=== PATIENT | female | born 1960 | race Caucasian/White ===

== ENCOUNTER → 2025-07-29 11:27 | Outpatient (REF) | payer OTHER, SELFPAY | LOC: MRI 11:27 | PROVIDERS: ATTENDING PHYSICIAN Physician Assistant Surgical; FAMILY PHYSICIAN Physician Assistant Medical | DX: M54.16 Radiculopathy, lumbar region (principal); M54.59 Other low back pain; M47.816 Spondylosis without myelopathy or radiculopathy, lumbar region | CPT/HCPCS: 72148 ==

== ENCOUNTER → 2025-08-18 08:06 | Outpatient (REF) | payer OTHER, SELFPAY | LOC: PAVMRI 08:06 | PROVIDERS: ATTENDING PHYSICIAN Physician Assistant Surgical; FAMILY PHYSICIAN Physician Assistant Medical | DX: M48.062 Spinal stenosis, lumbar region with neurogenic claudication (principal) | CPT/HCPCS: 72146 ==

== ENCOUNTER 2025-09-01 21:20 | Inpatient (IN) | payer OTHER, SELFPAY ==
[2025-09-01 17:46] VITALS: BP 133/89
[2025-09-01 18:18] LABS: Hematocrit 35.0 % (37.0-47.0); Hemoglobin 11.3 g/dL (12.0-16.0); Mean Corp Hgb Conc. 32.3 g/dL (33.0-37.0); Mean Corpuscular Volume 85.6 fL (81.0-99.0); Nucleated Red Blood Cells % 0 %; Platelet Count 172 10^3/uL (130-400); Red Cell Dist. Width 13.6 % (11.5-14.5)
[2025-09-01 18:30] LABS: ALT (SGPT) 39 U/L (0-35); AST (SGOT) 43 U/L (14-36); Albumin 3.8 g/dl (3.5-5.0); Alkaline Phosphatase 139 U/L (38-126); Blood Urea Nitrogen 19 mg/dl (7-17); Calcium 8.8 mg/dl (8.4-10.2); Carbon Dioxide 26 mmol/L (22-30); Chloride 95 mmol/L (98-107); Glucose 469 mg/dl (70-99); Potassium 4.7 mmol/L (3.5-5.1); Sodium 127 mmol/L (135-145); Total Protein 6.9 g/dl (6.3-8.2); eGFR 46.49
[2025-09-01 19:39] VITALS: BP 128/63
[2025-09-01 19:48] LABS: Glucose - Point of Care 411 mg/dl (70-99)
--- NOTE | 2025-09-01 20:03 | ED.GENMED ---
History of Present Illness
<Leighton Trujillo PA-C - Last Filed: 09/01/25 23:55>
General
Chief Complaint: Swelling
Source: patient
Time Seen by Provider: 09/01/25 19:33
History of Present Illness
History of Present Illness:
64-year-old female with past medical history of restless leg, type 2 diabetes presenting to the emergency department for evaluation of a multitude of symptoms that are been ongoing the last 2 weeks including worsening of her restless leg syndrome,
excessive fatigue, feeling as if she is having a hard time speaking, forgetfulness, polyuria and polydipsia, bilateral lower extremity edema. Patient states that due to her worsening restless legs she has been working with her specialist to the
[facility] but still having a hard time getting the symptoms under control. She denies any fevers or recent illnesses, recent steroid tapers, abdominal pain, nausea, vomiting or any other concerns. Denies any history of similar.
Past History
<Leighton Trujillo PA-C - Last Filed: 09/01/25 23:55>
Past History
ED Past Medical History: NIDDM and Other (Restless leg syndrome)
ED Past Surgical History: and Orthopedic
Social History
Tobacco: Non-smoker
Alcohol: Occasional
Drug: None
Personal:
Living: with family
Review of Systems
<Leighton Trujillo PA-C - Last Filed: 09/01/25 23:55>
Review of Systems
All Other Systems: ROS reviewed and negative except as documented in HPI and ROS
Phy Exam
<Leighton Trujillo PA-C - Last Filed: 09/01/25 23:55>
Physical Exam
Physical Exam:
GENERAL: Alert , in no apparent distress
HEAD: Normocephalic atraumatic
EYE: Clear conjunctiva
NECK: Supple
ENT: mmm.
CARDIAC: Regular rate and rhythm .
LUNGS: Clear breath sounds bilaterally, no acute respiratory distress, no wheezes/rales/rhonchi
ABDOMEN: Soft, without focal tenderness, no r/g, no cvat
NEUROLOGICAL: Alert and oriented, no focal neuro deficits, ambulatory with a steady gait
SKIN: Warm and dry, skin intact.
MUSCULOSKELETAL: well perfused. Nonpitting bilateral ankle edema
PSYCH: Normal and appropriate interaction.
Scores
<Leighton Trujillo PA-C - Last Filed: 09/01/25 23:55>
Heart Failure Risk
Heart Failure Risk Score: Not Applicable
Heart Score for Chest Pain Patients
STEMI patient?: Not applicable
Withdrawal Assessment of Alcohol
Withdrawal Assessment Completed?: Not applicable
Course
<Leighton Trujillo PA-C - Last Filed: 09/01/25 23:55>
Orders/Labs/Results
Orders:
Orders
09/01/25 Breakfast
2200 calorie (18 carb) Diabetic
At Your Request: Full Participation
Does patient need a safe tray?: No
09/01/25 17:59
Complete Blood Count/With Diff Urgent
Comprehensive Metabolic Panel Urgent
09/01/25 19:42
0.9% Sodium Chloride 1000 ml [Nss] 1,000 ml IV BOLUS
09/01/25 19:58
Insulin Aspart [NOVOLOG vial] See Protocol SC NOW STA
09/01/25 20:43
Add On- LAB Stat
Tests Added?: urine protein and creatine
09/01/25 20:52
Insulin Glargine Lantus [Lantus] 5 units Subcutaneous Insulin Syringe [Syringe-Insulin] 0 unit SC ONCE
09/01/25 20:56
Admit/Transfer Patient As Directed
Co-Sign Provider:
Level of Care: Inpatient admission
Assign to:: Medical/Surgical
Physician / Group: [email or web address]
Diagnosis: hyperglycemia
Reason for Hospitalization: hyperglycemia
Expected length of stay greater than two midnights?: Yes
ELOS- Estimated Length of Stay in days: 3
I certify the patient meets the requirements for IP care: Yes
PRN Pain Medication Management As Directed
May give lesser potent ordered pain med per pt: Yes
preference::
Protocol:: Medication orders for pain may be administered in a
manner that supports deferring to patient preference
when the pt is:
- Requesting an ordered lesser potent pain medication.
Least to most potent pain medications are defined
as: acetaminophen < NSAID < tramadol < opioids
(morphine, oxycodone, hydromorphone).
- Requesting a lesser dose of the same medication IF
ORDERED.
- Requesting a less intrusive route of administration
if both routes are prescribed by the provider (PO <
IV).
09/01/25 20:57
Code Status As Directed
Resuscitation Status: Full Code
09/01/25 21:00
B-Hydroxybutyrate Urgent
NT-proBNP Urgent
Venous Blood Gas Urgent
%Oxygen/Room Air: RA
09/01/25 21:01
Oxycodone [Roxicodone] 10 mg PO NOW STA
Pramipexole [Mirapex] 2.25 mg PO NOW STA
09/01/25 21:17
Pramipexole [Mirapex, Generic, Mirapex] 0.75 mg PO NOW STA
09/01/25 22:04
Urinalysis Reflex To Culture Urgent
Date Specimen was Collected: 09/01/25
Time Specimen was Collected: 19:49
Urine Creatinine Urgent
Date Specimen was Collected: 09/01/25
Time Specimen was Collected: 19:49
Comment: ADD ON
Urine Microscopic Reflex Cult Urgent
Urine Protein Urgent
Date Specimen was Collected: 09/01/25
Time Specimen was Collected: 19:49
Comment: ADD ON
Urine Culture Urgent
DIANE Source: U
Specimen Description:
Date Specimen was Collected: 09/01/25
Time Specimen was Collected: 19:49
09/01/25 22:44
Bisacodyl [Dulcolax] 10 mg RECTAL [id number] PRN
Dextrose 50%-Water [Dextrose 50% Syringe] 12.5 grams IV [id number] PRN
Docusate W/Senna [Senokot-S] 1 tablet PO BIDPRN PRN
Doxepin [Sinequan] 10 mg PO HS
Glucagon [GlucaGen] 1 mg IM PRN PRN
Polyethylene Glycol Powder [Miralax] 17 grams PO DAILYPRN PRN
09/01/25 22:44
Diabetes Management by Nurse Practitioner Routine
Consulting Provider: Amy Storm
Was provider already notified?: No
Reason for Consult: Insulin Recommendation
Date consulting provider notified: 09/01/25
Time consulting provider notified: 22:45
Notified:: Office
Activity As Directed
Activity Level: As Tolerated
Bedside Glucose Monitoring As Directed
Frequency: AC&HS
Additional Instructions:: Change to q6h if pt on TPN, tube feeding or not eating
Vital Signs As Directed
Frequency: Per unit guidelines
DX Deep Vein Thrombosis Video Routine
09/02/25 06:00
Complete Blood Count/No Diff IN AM
Comprehensive Metabolic Panel IN AM
Glycohemoglobin (HgbA1c) IN AM
09/02/25 07:30
Insulin Aspart Corrective Mod [Novolog Flexpen-Moderate Resistance] See Protocol SC AC
09/02/25 08:00
Heparin 5,000 units SC Q12
Sertraline HCl [Zoloft] 50 mg PO DAILY
09/02/25 22:00
Oxycodone [Roxicodone] 10 mg PO HS
pramipexole 2.25 mg PO HS
09/03/25 06:00
Complete Blood Count/No Diff IN AM
Comprehensive Metabolic Panel IN AM
09/04/25 06:00
Complete Blood Count/No Diff IN AM
Comprehensive Metabolic Panel IN AM
09/05/25 06:00
Complete Blood Count/No Diff IN AM
Comprehensive Metabolic Panel IN AM
Abnormal Lab Results
09/01/25 09/01/25 09/01/25
17:59 19:46 21:00
RBC 4.09 L 10^6/uL
(4.20-5.40)
Hgb 11.3 L g/dL
(12.0-16.0)
Hct 35.0 L %
(37.0-47.0)
MCHC 32.3 L g/dL
(33.0-37.0)
MPV 10.6 H fL
(7.4-10.4)
Absolute Monos (auto) 0.8 H 10^3/uL
(0.1-0.6)
Neutrophils % 35.4 L %
(42.2-75.2)
Monocytes % 15.1 H %
(1.7-9.3)
VBG pCO2 57 H mmHg
(35-48)
VBG HCO3 30.1 H mmol/L
(22-27)
Sodium 127 L mmol/L
(135-145)
Chloride 95 L mmol/L
(98-107)
BUN 19 H mg/dl
(7-17)
Creatinine 1.3 H mg/dL
(0.6-1.0)
Glucose 469 H* mg/dl
(70-99)
AST 43 H U/L
(14-36)
ALT 39 H U/L
(0-35)
Alkaline Phosphatase 139 H U/L
(38-126)
POC Glucose 411 H mg/dl
(70-99)
09/01/25 17:59
09/01/25 17:59
Vital Signs
Initial and Last Documented VS:
Initial Vital Signs
Pulse Resp Pulse Ox
85 18 95
09/01/25 17:45 09/01/25 17:45 09/01/25 17:45
Last Documented Vital Signs
Temp Pulse Resp BP Pulse Ox
97.8 F 80 16 89/57 94
09/01/25 22:45 09/01/25 22:45 09/01/25 22:45 09/01/25 22:45 09/01/25 22:45
<Gunnar Lincoln, DO - Last Filed: 09/01/25 20:17>
Orders/Labs/Results
Orders:
Orders
09/01/25 Breakfast
2200 calorie (18 carb) Diabetic
At Your Request: Full Participation
Does patient need a safe tray?: No
09/01/25 17:59
Complete Blood Count/With Diff Urgent
Comprehensive Metabolic Panel Urgent
09/01/25 19:42
0.9% Sodium Chloride 1000 ml [Nss] 1,000 ml IV BOLUS
09/01/25 19:58
Insulin Aspart [NOVOLOG vial] See Protocol SC NOW STA
09/01/25 20:43
Add On- LAB Stat
Tests Added?: urine protein and creatine
09/01/25 20:52
Insulin Glargine Lantus [Lantus] 5 units Subcutaneous Insulin Syringe [Syringe-Insulin] 0 unit SC ONCE
09/01/25 20:56
Admit/Transfer Patient As Directed
Co-Sign Provider:
Level of Care: Inpatient admission
Assign to:: Medical/Surgical
Physician / Group: [email or web address]
Diagnosis: hyperglycemia
Reason for Hospitalization: hyperglycemia
Expected length of stay greater than two midnights?: Yes
ELOS- Estimated Length of Stay in days: 3
I certify the patient meets the requirements for IP care: Yes
PRN Pain Medication Management As Directed
May give lesser potent ordered pain med per pt: Yes
preference::
Protocol:: Medication orders for pain may be administered in a
manner that supports deferring to patient preference
when the pt is:
- Requesting an ordered lesser potent pain medication.
Least to most potent pain medications are defined
as: acetaminophen < NSAID < tramadol < opioids
(morphine, oxycodone, hydromorphone).
- Requesting a lesser dose of the same medication IF
ORDERED.
- Requesting a less intrusive route of administration
if both routes are prescribed by the provider (PO <
IV).
09/01/25 20:57
Code Status As Directed
Resuscitation Status: Full Code
09/01/25 21:00
B-Hydroxybutyrate Urgent
NT-proBNP Urgent
Venous Blood Gas Urgent
%Oxygen/Room Air: RA
09/01/25 21:01
Oxycodone [Roxicodone] 10 mg PO NOW STA
Pramipexole [Mirapex] 2.25 mg PO NOW STA
09/01/25 21:17
Pramipexole [Mirapex, Generic, Mirapex] 0.75 mg PO NOW STA
09/01/25 22:04
Urinalysis Reflex To Culture Urgent
Date Specimen was Collected: 09/01/25
Time Specimen was Collected: 19:49
Urine Creatinine Urgent
Date Specimen was Collected: 09/01/25
Time Specimen was Collected: 19:49
Comment: ADD ON
Urine Microscopic Reflex Cult Urgent
Urine Protein Urgent
Date Specimen was Collected: 09/01/25
Time Specimen was Collected: 19:49
Comment: ADD ON
Urine Culture Urgent
DIANE Source: U
Specimen Description:
Date Specimen was Collected: 09/01/25
Time Specimen was Collected: 19:49
09/01/25 22:44
Bisacodyl [Dulcolax] 10 mg RECTAL [id number] PRN
Dextrose 50%-Water [Dextrose 50% Syringe] 12.5 grams IV [id number] PRN
Docusate W/Senna [Senokot-S] 1 tablet PO BIDPRN PRN
Doxepin [Sinequan] 10 mg PO HS
Glucagon [GlucaGen] 1 mg IM PRN PRN
Polyethylene Glycol Powder [Miralax] 17 grams PO DAILYPRN PRN
09/01/25 22:44
Diabetes Management by Nurse Practitioner Routine
Consulting Provider: Amy Storm
Was provider already notified?: No
Reason for Consult: Insulin Recommendation
Date consulting provider notified: 09/01/25
Time consulting provider notified: 22:45
Notified:: Office
Activity As Directed
Activity Level: As Tolerated
Bedside Glucose Monitoring As Directed
Frequency: AC&HS
Additional Instructions:: Change to q6h if pt on TPN, tube feeding or not eating
Vital Signs As Directed
Frequency: Per unit guidelines
DX Deep Vein Thrombosis Video Routine
09/02/25 06:00
Complete Blood Count/No Diff IN AM
Comprehensive Metabolic Panel IN AM
Glycohemoglobin (HgbA1c) IN AM
09/02/25 07:30
Insulin Aspart Corrective Mod [Novolog Flexpen-Moderate Resistance] See Protocol SC AC
09/02/25 08:00
Heparin 5,000 units SC Q12
Sertraline HCl [Zoloft] 50 mg PO DAILY
09/02/25 22:00
Oxycodone [Roxicodone] 10 mg PO HS
pramipexole 2.25 mg PO HS
09/03/25 06:00
Complete Blood Count/No Diff IN AM
Comprehensive Metabolic Panel IN AM
09/04/25 06:00
Complete Blood Count/No Diff IN AM
Comprehensive Metabolic Panel IN AM
09/05/25 06:00
Complete Blood Count/No Diff IN AM
Comprehensive Metabolic Panel IN AM
Abnormal Lab Results
09/01/25 09/01/25 09/01/25
17:59 19:46 21:00
RBC 4.09 L 10^6/uL
(4.20-5.40)
Hgb 11.3 L g/dL
(12.0-16.0)
Hct 35.0 L %
(37.0-47.0)
MCHC 32.3 L g/dL
(33.0-37.0)
MPV 10.6 H fL
(7.4-10.4)
Absolute Monos (auto) 0.8 H 10^3/uL
(0.1-0.6)
Neutrophils % 35.4 L %
(42.2-75.2)
Monocytes % 15.1 H %
(1.7-9.3)
VBG pCO2 57 H mmHg
(35-48)
VBG HCO3 30.1 H mmol/L
(22-27)
Sodium 127 L mmol/L
(135-145)
Chloride 95 L mmol/L
(98-107)
BUN 19 H mg/dl
(7-17)
Creatinine 1.3 H mg/dL
(0.6-1.0)
Glucose 469 H* mg/dl
(70-99)
AST 43 H U/L
(14-36)
ALT 39 H U/L
(0-35)
Alkaline Phosphatase 139 H U/L
(38-126)
POC Glucose 411 H mg/dl
(70-99)
09/01/25 17:59
09/01/25 17:59
Vital Signs
Initial and Last Documented VS:
Initial Vital Signs
Pulse Resp Pulse Ox
85 18 95
09/01/25 17:45 09/01/25 17:45 09/01/25 17:45
Last Documented Vital Signs
Temp Pulse Resp BP Pulse Ox
97.8 F 80 16 89/57 94
09/01/25 22:45 09/01/25 22:45 09/01/25 22:45 09/01/25 22:45 09/01/25 22:45
<Leighton Trujillo PA-C - Last Filed: 09/01/25 23:55>
MDM/Problems Addressed
Differential Diagnosis Includes:
Medication reaction/side effects
DKA
HHNK
CVA/TIA
ICH
Electrolyte imbalance
Anemia
CHF
MDM/Problems Addressed:
64-year-old female presenting to the ER for evaluation of a multitude of symptoms that are been worsening over the last 2 weeks, patient most concerned about the swelling in her legs as well as forgetfulness. Labs were initiated on arrival which
show a significant hyperglycemia with a glucose of 469. Sodium of 127 but suspect pseudohyponatremia secondary to hyperglycemia. Patient also has a very slight RAMIREZ. I added on a beta hydroxybutyrate, venous blood gas, urinalysis and BNP to
patient's blood work. IV fluids and subcutaneous NovoLog ordered to start correcting patient's hyperglycemia. Plan for admission
Chronic conditions affecting care: DM
Acute Exacerbation and/or Progression of Chronic Illness: DM
<Leighton Trujillo PA-C - Last Filed: 09/01/25 23:55>
*Pulse Oximetry
SaO2: 95
Oxygen Mode of Delivery: Room air
Patient hypoxic: no
*Pipe Installer Interpretation
Rate: normal
Rhythm: sinus
*Critical Care Note
Total Time (30-74mins, 75-104mins- exclusive of procedures): Not Applicable
<Leighton Trujillo PA-C - Last Filed: 09/01/25 23:55>
Comment
Comment:
Patient did tell Dr. Lincoln that she had recently completed a 6-day prednisone taper as part of trying to get her restless leg syndrome under control
Patient Management
Discussion with other providers: Hospitalist
Escalation/DeEscalation of care consider admission/obs:
Hospitalist team is aware and accepts continued evaluation and treatment of hyperglycemia without DKA.
ED Attending Note
<Leighton Trujillo PA-C - Last Filed: 09/01/25 23:55>
-
Portions of this chart may have been created with voice recognition software.� Occasional wrong word or��sound alike� substitutions may have occurred due to the inherent limitations of voice recognition software.
<Gunnar Lincoln DO - Last Filed: 09/01/25 20:17>
ED Attending Note
Patient seen and examined by attending physician: Yes
I performed the substantive portion of visit, reviewed & personally made and approve the management plan that is documented in note by myself or NAWAF.: Yes
ED Attending Note:
I have seen and evaluated the patient with a [id number] encounter. I have spoken to the advance practicer provider and involved in the medical history, the physical exam, medical decision making.
Evaluation and management service: agree unless noted differently below.
Results interpretation: agree unless noted differently below.
Focused HPI: 64-year-old female presenting with generalized weakness and fatigue, leg swelling and shortness of breath and blurry vision.
Physical exam: Sitting in bed comfortably. Very dry mucous membranes. Nonpitting lower extremity edema bilaterally
Medical Decision Making: Upon further questioning, patient believes that she just had back for back pain. Patient found to be hyperglycemic which is likely the source of her symptoms. Will give dose of insulin and start IV fluids and ultimately
admit.
Discharge Plan
Departure
Patient Disposition: Admit
Date of Disposition: 09/01/25
Time of Disposition: 20:22
Presentation/result/management discussed w/ accepting MD/DO: Hospitalist
Discharge Problem:
Acute hyperglycemia, RAMIREZ (acute kidney injury)
Interventions
Interventions:
*General Assessment Last Done: 09/01/25 21:06
*Neglect/Abuse Screening Last Done: 09/01/25 21:06
*ED- Fall Risk Assessment Last Done: 09/01/25 21:06
*ED COVID-19 Vaccine History Last Done: 09/01/25 21:06
*ED Influenza Vaccine History Last Done: 09/01/25 21:06
*Nursing Disposition Last Done: 09/01/25 22:35
ED- Cardiac Assessment Last Done: 09/01/25 21:06
ED- Pulmonary Assessment Last Done: 09/01/25 21:06
ED-Skin Assessment Last Done: 09/01/25 21:06
Discharge Date and Time
Discharge Date/Time: 09/01/25 22:35
--- NOTE | 2025-09-01 20:22 | HPS.HSE ---
Family Physician
-
Family Physician: Iggy Gregorio PA-C
Chief Complaint
-
weakness
History of Present Illness
64-year-old female with past medical history of restless leg, type 2 diabetes,HTN, anxiety, restless leg syndrome presented to us with fatigue, weakness, not able to think and talk correctly, worsening fogginess which progressively getting worse for
past one month. patient stated polydipsia for past few weeks. she is not able to sleep at night due to back pain. she is also complaining of worsening restless leg syndrome which actually improving with increased dose of oxycodone for past two
weeks.patient stated stopping monjaro a month ago as she was gaining weight on Monjaro. patient complained of worsening LE edema. she complained of blurry vision, dizzy. denied fever, chills, cough, congestion, chest pain, sob. denied abdominal
pain,n,v,d,. denied dysuria or hematuria. patient was on Medrol pack two weeks ago for restless syndrome and back pain.
upon arrival she was noted hyperglycemic. Patient received insulin aspart, normal saline in the ER. Admitting for further med
Medical History
Past Medical History
Past Medical History: Reports Other
Additional Past Medical History:
Restless leg syndrome, hypertension, anxiety, type 2 diabetes, hyperlipidemia, GERD, steatohepatitis, type fatty liver, depression
Past Surgical History: Reports Other
Social History
Tobacco: Non-smoker
Alcohol: None
Drug: None
Personal:
Living: With Family
Family History
Family History: Not pertinent
Allergies / Home Medications
Allergies reflects when Allergies were last updated in [employer].
Home Medications with original date entered in [employer]
Allergy/Medication List:
Allergies
Allergy/AdvReac Type Severity Reaction Status Date / Time
No Known Allergies Allergy Unverified 09/01/25 17:46
Home Medications
metformin 500 mg tablet 500 mg PO BID 07/03/16
Review of Systems
-
Constitutional: Reports Weight Gain
EENT: Reports No Symptoms
Respiratory: Reports No Symptoms
Cardiac: Reports No Symptoms
Abdomen/GI: Reports No Symptoms
: Reports No Symptoms
Musculoskeletal: Reports No Symptoms
Skin: Reports No Symptoms
Neurological: Reports Dizzy and Weakness
Endocrine: Reports Polydipsia
Hematologic/Lymphatic: Reports No Symptoms
Psych: Reports No Symptoms
Physical Exam
Vital Signs
Vital Signs
Pulse Resp BP Pulse Ox
85 18 133/89 95
09/01/25 17:45 09/01/25 17:45 09/01/25 17:46 09/01/25 20:04
Physical Exam
General: Well Developed, Well Nourished and No Apparent Distress
HEENT: NormoCephalic, Moist mucous membranes and Atraumatic
Respiratory: Clear
Cardiac: S1/S2 and Regular Rhythm; No Murmur or Rub
GI: Soft, Non Tender, Non Distended and Normal Bowel Sounds; No Organomegaly
Rectal: Deferred by Provider
Musculoskeletal: No Clubbing, No Cyanosis and No Edema
Skin: No Rash
Neuro: AO x 3 and Nonfocal/grossly intact
Psych: Calm
Laboratory Results
-
09/01/25 17:59
09/01/25 17:59
Laboratory Results
Total Bilirubin 0.8 mg/dl (0.2-1.3) 09/01/25 17:59
AST 43 U/L (14-36) H 09/01/25 17:59
ALT 39 U/L (0-35) H 09/01/25 17:59
Alkaline Phosphatase 139 U/L (38-126) H 09/01/25 17:59
Data Reviewed
-
Lab Data: Labs Reviewed by me
Impression/Plan
-
# Severe hyperglycemia/type 2 diabetes
- Blood sugar in 400s
- Sliding scale
- CHO diet
- Diabetic MINE UTILITY OPERATOR consulted
- Lantus 5 units now
- Hold metformin
# Pseudohyponatremia
- Corrected sodium is 136
#Acute kidney injury likely dehydration
- Creatinine 1.3
- Continue to monitor creatinine
- Patient received normal saline in the ER
# Chronic transaminitis
- AST 43, ALT 39
- Denies any abdominal pain
- Continue to trend
# Essential hypertension
- Hold valsartan/HCTZ
# Depression/anxiety
- Doxepin, sertraline continue
# Restless leg syndrome
- Oxycodone, pramipexole continued
# DVT prophylaxis
- Heparin subcu
# CODE STATUS
- Full code
--- NOTE | 2025-09-01 20:24 | W.PN.UPDATE ---
Update Note
Progress Note Update
Patient seen in conjunction with KIKI. I agree with the findings on physical. I concur with assessment and plan unless stated otherwise.
Briefly, this is a 62-year-old with past medical history significant for jyf-zdwdjzo-vbbfsqejg diabetes, restless leg syndrome presenting to the emergency department with multiple complaints has been going on for about 2 weeks. She reports
increasing fatigue, forgetfulness, polyuria, polydipsia, bilateral lower extremity edema. Denies any urinary symptoms such as dysuria urgency, incontinence or flank pain. Denies having nausea vomiting or diarrhea. Denies having any skin rash.
Denies any new medications. Reports compliance with all medicines.
She reported that she stopped taking Mounjaro about 1 month ago. Medicine time she did get a Medrol Dosepak for back pain recently. She reports some increased thirst. She denies increased urine output. She did notice increased lower extremity
swelling and some weight gain over the last 2 to 3 weeks. Patient reports occasionally feeling dizzy.
She used to be on pramipexole which was stopped recently for a trial of Suboxone in the setting of opioid use. Suboxone was discontinued after 3 days however pramipexole has not been continued and he has been using increasing doses of oxycodone
prescribed by PMD rather than by restless leg specialist.
In the emergency department she was found to be afebrile, hemodynamically stable with a blood pressure of 133/90 and a pulse of 85 satting 95% on room air. CBC was unremarkable. Electrolytes notable for a sodium of 127 with normal potassium
chloride and bicarb. Creatinine is 1.3. Glucose was elevated at 419. She had mild transaminitis elevation to 43 and 39 with alk phos of 139.
Assessment and plan
Uncontrolled diabetes with hyperglycemia. No DKA or HHS
- Admit to MedSurg
- IV fluids with NS if bnp negative.
- Start moderate dose sliding scale.
- Will give aspart 8 units now
- Lantus 5 units at bedtime
- check a1c in am
Altered mental status -suspect multifactorial including uncontrolled diabetes, worsening and nighttime insomnia and daytime sleepiness + fatigue
- TSH is within normal limits
- check u/a, b12
- Reduce oxycodone to 10 mg at bedtime for now
- Restart pramipexole
- Can try melatonin at bedtime to reduce sleep
- Follow-up with RLS specialist after sugar control
Edema -1+ ankle edema bilaterally. No orthopnea but reports fatigue and some dyspnea on exertion.
- Check proBNP
- Check protein creatinine for proteinuria although does not appear to be nephrotic normal abdomen level and normal blood pressure
- iV fluids if proBNP negative
- Continue valsartan and hydrochlorothiazide
DVT prophylaxis� heparin sq
CODE STATUS�full code
[2025-09-01 21:03] VITALS: BMI 36.0
[2025-09-01 21:08] LABS: Venous Blood Gas B.E. 2.9 mmol/L (-4 to +4); Venous Blood Gas O2 Sat % 59.0 %
[2025-09-01 21:14] VITALS: BP 106/67
[2025-09-01] MEDS: NOVOLOG vial 3 UNITS SC (21:24)
[2025-09-01 21:25] LABS: Glucose - Point of Care 329 mg/dl (70-99)
[2025-09-01] MEDS: LANTUS 0.05 UNITS SC (21:25)
[2025-09-01] MEDS: ROXICODONE 10 MG PO (21:52)
[2025-09-01] MEDS: MIRAPEX, GENERIC 0.75 MG PO (21:54)
[2025-09-01] MEDS: NSS 1000 IV (21:56)
[2025-09-01 22:00] VITALS: BP 120/96
[2025-09-01 22:15] LABS: Urine Character Clear (Clear)
[2025-09-01 22:45] VITALS: BP 89/57; BMI 35.2
[2025-09-01 22:47] LABS: Urine Squamous Cell >30 /LPF (Few)
[2025-09-01 22:48] LABS: Urine White Cell 50-60 /HPF (0-5)
[2025-09-02] MEDS: SINEQUAN PO (00:03)
[2025-09-02 03:40] VITALS: BP 120/64
[2025-09-02 05:39] LABS: Hematocrit 33.7 % (37.0-47.0); Hemoglobin 10.9 g/dL (12.0-16.0); Mean Corp Hgb Conc. 32.3 g/dL (33.0-37.0); Mean Corpuscular Volume 87.8 fL (81.0-99.0); Platelet Count 163 10^3/uL (130-400); Red Cell Dist. Width 13.9 % (11.5-14.5)
[2025-09-02 06:05] LABS: ALT (SGPT) 34 U/L (0-35); AST (SGOT) 35 U/L (14-36); Albumin 3.2 g/dl (3.5-5.0); Alkaline Phosphatase 123 U/L (38-126); Blood Urea Nitrogen 22 mg/dl (7-17); Calcium 8.8 mg/dl (8.4-10.2); Carbon Dioxide 25 mmol/L (22-30); Chloride 101 mmol/L (98-107); Estimated Creatinine Clearance 39 ml/min; Glucose 225 mg/dl (70-99); Potassium 4.1 mmol/L (3.5-5.1); Sodium 129 mmol/L (135-145); Total Protein 6.6 g/dl (6.3-8.2); eGFR 33.70
[2025-09-02 07:10] VITALS: BP 114/71
[2025-09-02 07:16] LABS: Glucose - Point of Care 207 mg/dl (70-99)
[2025-09-02] MEDS: HEPARIN SC (08:47)
[2025-09-02] MEDS: NOVOLOG FLEXPEN-MODERATE RESISTANCE 3 UNITS SC ×3 (08:49→16:26)
[2025-09-02] MEDS: ZOLOFT 50 MG PO (08:50)
[2025-09-02] MEDS: MIRAPEX, GENERIC 0.5 MG PO ×3 (08:50→20:48)
[2025-09-02] MEDS: NSS 1000 IV ×2 (09:19→19:04)
[2025-09-02 09:40] LABS: Glycohemoglobin (HgbA1c) 10.8 % (4.0-5.9)
[2025-09-02 11:00] VITALS: BP 125/67
--- NOTE | 2025-09-02 11:25 | W.PN.HOSP.TC ---
Today's Communication/Plan
-
see outlined plan below
Assessment / Plan
Assessment / Plan
Assessment:
Severe hyperglycemia without DKA
NIDDM
- likely partially worsened with recent Medrol dose pack but also concerns for dietary compliance
- A1c is 10.8%
- holding Metformin due to RAMIREZ
- will initiate Lantus 10 units, aspart 5 units AC, SSI
- diabetes education and SUPERVISOR TILE AND MOTTLE consult for Thursday
- diabetic diet
Pseudohyponatremia in setting of hyperglycemia
RAMIREZ in setting of acute dehydration
- continue IVF (NSS)
- monitor labs
- BS/SC protocol
Chronic transaminitis
- could be related to fatty liver with hx of DM, and elevated BMI
- AST 43, ALT 39
- Denies any abdominal pain
- Continue to trend
- OP f/u
Essential hypertension
- Hold valsartan/HCTZ for RAMIREZ/Hyponatermia
Depression/anxiety
- Doxepin, sertraline continue
Restless leg syndrome
- pramipexole continued
- followed by Dr. Hoang - [place] RLS specialist
- Dr. Hoang is prescribing oxycodone 5mg - 30 day, quantity of 90 - therefore 5mg TID; will reduce to 5mg BID prn
DVT ppx: SC Heparin
Code: Full
Anticipated Discharge: > 48 hours
Subjective/Interval History
-
Date of Service: September 02, 2025
slightly sleepy
slightly nauseous, no abd pain
Objective Data
-
Labs:
Laboratory Results
09/02/25
05:14
WBC 5.8
Hgb 10.9 L
Hct 33.7 L
Plt Count 163
Sodium 129 L
Potassium 4.1
Chloride 101
Carbon Dioxide 25
BUN 22 H
Creatinine 1.7 H
Glucose 225 H
Calcium 8.8
Total Bilirubin 1.0
AST 35
ALT 34
Alkaline Phosphatase 123
Vital Signs:
Vital Signs
Temp Pulse Resp BP Pulse Ox
98 F 78 18 125/67 91
09/02/25 11:00 09/02/25 11:00 09/02/25 11:00 09/02/25 11:00 09/02/25 11:00
Physical Exam
-
General: No Apparent Distress
HEENT: Normocephalic and Atraumatic
Respiratory: Negative Wheezes
Cardiac: Regular Rhythm and S1/S2
GI: Soft and Nontender
Musculoskeletal: No Edema
Neuro: AO x 3
Psych: Calm
Data Reviewed
-
Total Time Spent with Patient (in minutes): 41
Labs: Labs Reviewed by me
[2025-09-02 11:45] LABS: Glucose - Point of Care 231 mg/dl (70-99)
[2025-09-02] MEDS: ROXICODONE 5 MG PO (11:49)
[2025-09-02] MEDS: NOVOLOG FLEXPEN 5 UNITS SC ×2 (11:50→16:24)
[2025-09-02] MEDS: ZOFRAN 4 MG IV (12:40)
[2025-09-02 14:54] VITALS: BP 102/67
[2025-09-02 16:25] LABS: Glucose - Point of Care 226 mg/dl (70-99)
[2025-09-02] MEDS: HEPARIN 5000 UNITS SC (20:48)
[2025-09-02] MEDS: LANTUS 0.1 UNITS SC (20:48)
[2025-09-02] MEDS: SINEQUAN 10 MG PO (20:48)
[2025-09-02 20:55] LABS: Glucose - Point of Care 237 mg/dl (70-99)
[2025-09-02 23:26] VITALS: BP 117/69
[2025-09-03 07:08] LABS: Glucose - Point of Care 196 mg/dl (70-99)
[2025-09-03 07:20] LABS: Hematocrit 33.5 % (37.0-47.0); Hemoglobin 11.0 g/dL (12.0-16.0); Mean Corp Hgb Conc. 32.8 g/dL (33.0-37.0); Mean Corpuscular Volume 86.8 fL (81.0-99.0); Platelet Count 158 10^3/uL (130-400); Red Cell Dist. Width 13.8 % (11.5-14.5)
[2025-09-03 07:26] LABS: ALT (SGPT) 32 U/L (0-35); AST (SGOT) 38 U/L (14-36); Albumin 3.2 g/dl (3.5-5.0); Alkaline Phosphatase 114 U/L (38-126); Blood Urea Nitrogen 19 mg/dl (7-17); Calcium 8.8 mg/dl (8.4-10.2); Carbon Dioxide 28 mmol/L (22-30); Chloride 103 mmol/L (98-107); Estimated Creatinine Clearance 67 ml/min; Glucose 218 mg/dl (70-99); Potassium 4.7 mmol/L (3.5-5.1); Sodium 133 mmol/L (135-145); Total Protein 6.4 g/dl (6.3-8.2); eGFR > 60.00
[2025-09-03 07:46] VITALS: BP 145/86
[2025-09-03] MEDS: NOVOLOG FLEXPEN 5 UNITS SC (08:44)
[2025-09-03] MEDS: NOVOLOG FLEXPEN-MODERATE RESISTANCE 1 UNITS SC (08:44)
[2025-09-03] MEDS: HEPARIN 5000 UNITS SC ×2 (08:45→19:41)
[2025-09-03] MEDS: ZOLOFT 50 MG PO (08:45)
[2025-09-03] MEDS: MIRAPEX, GENERIC 0.5 MG PO ×3 (08:45→21:34)
[2025-09-03] MEDS: ROCEPHIN 1000 MG IV (08:50)
[2025-09-03] MEDS: STERILE WATER FOR INJECTION 10 ML IV (08:50)
--- NOTE | 2025-09-03 09:16 | CM ---
CM following re: discharge planning.
Reviewed pt's chart, met with pt.
Pt is a 64 year old female, admitted with primary dx of DM.
Pt reports she lives with 2SH, 1 step to enter. 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
PCP: Iggy Gregorio
Pharmacy: [facility]
D/C plan: home no needs. to transport at discharge.
CM will follow with discharge plan updates as needed.
[2025-09-03 11:25] LABS: Glucose - Point of Care 368 mg/dl (70-99)
--- NOTE | 2025-09-03 11:29 | W.PN.HOSP.TC ---
Today's Communication/Plan
-
UTI treatment - on Rocephin
dc insulin; resume Metformin; consider additional oral options
monitor BMP
Assessment / Plan
Assessment / Plan
Assessment:
Severe hyperglycemia without DKA
NIDDM
- likely partially worsened with recent Medrol dose pack but also concerns for dietary compliance
- A1c is 10.8% but reported as 6% recently a few weeks ago
- resume Metformin with resolved RAMIREZ
- long discussion with patient and spouse, possibly transient false increase in A1c in setting of Medrol dose pack
- will keep on Metformin for now, consider adding additional agent but patient will need early Endocrinology f/u
- I also have concerns with patients confusion and chronic narcotic use of safety utilization of insulin at this time.
- diabetic diet with telehealth nurse educator consult; no need for PLANER OPERATOR / GRADER consult as present
TME in setting of RAMIREZ, UTI, opiates
- treat UTI; start Rocephin day 1, follow cultures
Pseudohyponatremia in setting of hyperglycemia
RAMIREZ in setting of acute dehydration
- continue IVF (NSS) x 1 further day
- monitor labs
- BS/SC protocol
Chronic transaminitis
- could be related to fatty liver with hx of DM, and elevated BMI
- AST 43, ALT 39
- Denies any abdominal pain
- Continue to trend
- OP f/u
Essential hypertension
- Hold valsartan/HCTZ for RAMIREZ/Hyponatremia; if stable in AM, resume ARB portion back
Depression/anxiety
- Doxepin, sertraline continue
Restless leg syndrome
- pramipexole continued
- followed by Dr. Hoang - [place] RLS specialist
- Dr. Hoang is prescribing oxycodone 5mg - 30 day, quantity of 90 - therefore 5mg TID; will reduce to 5mg BID prn
DVT ppx: SC Heparin
Code: Full
Anticipated Discharge: > 48 hours
Subjective/Interval History
-
Date of Service: September 03, 2025
resting comfortably
Cr normal
UTI discovered
Objective Data
-
Labs:
Laboratory Results
09/03/25
06:22
WBC 5.2
Hgb 11.0 L
Hct 33.5 L
Plt Count 158
Sodium 133 L
Potassium 4.7
Chloride 103
Carbon Dioxide 28
BUN 19 H
Creatinine 1.0
Glucose 218 H
Calcium 8.8
Total Bilirubin 1.0
AST 38 H
ALT 32
Alkaline Phosphatase 114
Vital Signs:
Vital Signs
Temp Pulse Resp BP Pulse Ox
98.3 F 85 17 145/86 95
09/03/25 07:46 09/03/25 07:46 09/03/25 07:46 09/03/25 07:46 09/03/25 07:46
I&O
09/02/25 09/03/25 09/04/25
06:59 06:59 06:59
Intake Total 960 / 960
Balance 960 / 960
Physical Exam
-
General: No Apparent Distress
HEENT: Normocephalic and Atraumatic
Respiratory: Negative Wheezes
Cardiac: Regular Rhythm and S1/S2
GI: Soft and Nontender
Musculoskeletal: No Edema
Neuro: AO x 3
Psych: Calm
Data Reviewed
-
Total Time Spent with Patient (in minutes): 41
Labs: Labs Reviewed by me
[2025-09-03] MEDS: NOVOLOG FLEXPEN-MODERATE RESISTANCE 9 UNITS SC (11:48)
[2025-09-03] MEDS: GLUCOPHAGE 500 MG PO (11:52)
[2025-09-03] MEDS: NSS 1000 IV ×2 (11:54→21:34)
[2025-09-03] MEDS: NOVOLOG FLEXPEN SC (12:02)
--- NOTE | 2025-09-03 12:42 | PTCARENOTE ---
Patient ambulating in room with a steady gait. Patient c/o feeling foggy and shaky. Plan of care has been explained to patient multiple times as she forgets what was discussed earlier. Patient states, 'This is why I am here. I have been forgetful,
foggy and shaky for days.' Call diane in reach. RN asked to come in to be here to speak with physicians/nurses and support spouse. Don () states, 'I have a heart problem and I cannot come to the hospital.'
[2025-09-03 15:50] VITALS: BP 158/89
[2025-09-03 16:13] LABS: Glucose - Point of Care 300 mg/dl (70-99)
[2025-09-03] MEDS: NOVOLOG FLEXPEN-MODERATE RESISTANCE 7 UNITS SC (17:19)
[2025-09-03] MEDS: GLUCOPHAGE XR EXTENDED RELEASE 1000 MG PO (17:21)
[2025-09-03] MEDS: SINEQUAN 10 MG PO (21:34)
[2025-09-03 21:56] LABS: Glucose - Point of Care 160 mg/dl (70-99)
[2025-09-03 23:03] VITALS: BP 148/84
[2025-09-04 06:29] LABS: Hematocrit 32.4 % (37.0-47.0); Hemoglobin 10.5 g/dL (12.0-16.0); Mean Corp Hgb Conc. 32.4 g/dL (33.0-37.0); Mean Corpuscular Volume 86.2 fL (81.0-99.0); Platelet Count 145 10^3/uL (130-400); Red Cell Dist. Width 13.8 % (11.5-14.5)
[2025-09-04 06:54] LABS: ALT (SGPT) 29 U/L (0-35); AST (SGOT) 37 U/L (14-36); Albumin 3.1 g/dl (3.5-5.0); Alkaline Phosphatase 106 U/L (38-126); Blood Urea Nitrogen 12 mg/dl (7-17); Calcium 8.5 mg/dl (8.4-10.2); Carbon Dioxide 27 mmol/L (22-30); Chloride 108 mmol/L (98-107); Estimated Creatinine Clearance 74 ml/min; Glucose 180 mg/dl (70-99); Potassium 4.7 mmol/L (3.5-5.1); Sodium 138 mmol/L (135-145); Total Protein 6.2 g/dl (6.3-8.2); eGFR > 60.00
[2025-09-04 07:10] VITALS: BP 150/104
[2025-09-04] MEDS: NSS 1000 IV (07:30)
[2025-09-04] MEDS: GLUCOPHAGE XR EXTENDED RELEASE 1000 MG PO (07:33)
[2025-09-04] MEDS: HEPARIN 5000 UNITS SC (07:33)
[2025-09-04] MEDS: ZOLOFT 50 MG PO (07:33)
[2025-09-04] MEDS: MIRAPEX, GENERIC 0.5 MG PO (07:33)
[2025-09-04] MEDS: NOVOLOG FLEXPEN-MODERATE RESISTANCE 1 UNITS SC ×2 (07:41→12:56)
[2025-09-04 07:42] LABS: Glucose - Point of Care 157 mg/dl (70-99)
--- NOTE | 2025-09-04 09:15 | W.PN.HOSP.TC ---
Today's Communication/Plan
-
resume ARB
add Glipizide
mail weigher/stewardesses teacher consults
Assessment / Plan
Assessment / Plan
Assessment:
Severe hyperglycemia without DKA
NIDDM
- likely partially worsened with recent Medrol dose pack but also concerns for dietary compliance
- A1c is 10.8% but reported as 6% recently a few weeks ago
- resume Metformin with resolved RAMIREZ
- long discussion with patient and spouse, possibly transient false increase in A1c in setting of Medrol dose pack
- will keep on Metformin and add Glipizide. Of note, patient was on Mounjaro but stopped it.
- I also have concerns with patients confusion and chronic narcotic use of safety utilization of insulin at this time.
- diabetic diet with game engineer consult; no need for BUMPER STRAIGHTENER consult as present
TME in setting of RAMIREZ, UTI, opiates
- treat UTI; start Rocephin day 2/5, culture with 40K CFU - would still treat with hx of confusion/DM
Pseudohyponatremia in setting of hyperglycemia
RAMIREZ in setting of acute dehydration
- stop IVF
- monitor labs
- BS/SC protocol
Chronic transaminitis
- could be related to fatty liver with hx of DM, and elevated BMI
- AST 43, ALT 39
- Denies any abdominal pain
- Continue to trend
- OP f/u
Essential hypertension
- Hold valsartan/HCTZ for RAMIREZ/Hyponatremia;
- resume Valsartan 160mg today; monitor BPs
Depression/anxiety
- Doxepin, sertraline continue
Restless leg syndrome
- pramipexole continued
- followed by Dr. Hoagn - [place] RLS specialist
- Dr. Hoang is prescribing oxycodone 5mg - 30 day, quantity of 90 - therefore 5mg TID; will reduce to 5mg BID prn
DVT ppx: SC Heparin
Code: Full
Anticipated Discharge: Within 24 hours
Subjective/Interval History
-
Date of Service: September 04, 2025
resting comfortably, no complaints
Objective Data
-
Labs:
Laboratory Results
09/04/25
06:11
WBC 4.7 L
Hgb 10.5 L
Hct 32.4 L
Plt Count 145
Sodium 138
Potassium 4.7
Chloride 108 H
Carbon Dioxide 27
BUN 12
Creatinine 0.9
Glucose 180 H
Calcium 8.5
Total Bilirubin 0.6
AST 37 H
ALT 29
Alkaline Phosphatase 106
Vital Signs:
Vital Signs
Temp Pulse Resp BP Pulse Ox
98.0 F 76 16 150/104 94
09/04/25 07:10 09/04/25 07:10 09/04/25 07:10 09/04/25 07:10 09/04/25 07:10
I&O
09/03/25 09/04/25 09/05/25
06:59 06:59 06:59
Intake Total 960 / 960 960 / 960
Balance 960 / 960 960 / 960
Physical Exam
-
General: No Apparent Distress
HEENT: Normocephalic and Atraumatic
Respiratory: Negative Wheezes
Cardiac: Regular Rhythm and S1/S2
GI: Soft and Nontender
Genito-urinary: No Costovertebral Tender
Neuro: AO x 3
Psych: Calm
Data Reviewed
-
Total Time Spent with Patient (in minutes): 42
Labs: Labs Reviewed by me
--- NOTE | 2025-09-04 09:44 | PTCARENOTE ---
Patient c/o feeling congestion in her chest. Lungs sounds were clear, patient has no c/o cough, RA 96%.
--- NOTE | 2025-09-04 10:17 | GLUCOSE ---
SITUATION:
BACKGROUND:
ASSESSMENT:
RECOMMENDATION:
--- NOTE | 2025-09-04 10:17 | PTCARENOTE ---
09/04/2025 DIABETES EDUCATION CONSULT
I met with patient to review diabetes management. She is inpatient due to weakness, BS was 469 mg/dL, A1c is 10.8%. States a few weeks ago her HbA1c was 6%, she saw Dr. Martin at [facility]. She also states she has not seen him in some time,
and her PCP manages her DM.
I provided education that she should obtain an A1c every 3 months. I reviewed with Rajani the medications prescribed by Dr. Trejo: Metformin and Glipizide. I reviewed the mechanism of action, and reinforced that Glipizide is to be taken 30 minutes
prior to meals as it helps pancreas stimulate insulin secretion.
I educated on physiology of T2D, organ damage, managing with medications, monitoring BG, nutrition, activity. I reinforced signs of hyperglycemia, hypoglycemia and hypoglycemia protocol; BS parameters and recommended HbA1c goals. She declined
sample of and glucometer demonstration, states she has a glucometer at home but rarely uses this. She has had blurry vision for 2 weeks, and does not exercise due to restless leg syndrome. I provided written material on glucometer and CGM
instructions, glucose tracker, medic alert bracelet and outpatient DSME program.
Encouraged patient to follow up with her PCP for post d/c appointment and to monitor medication and blood glucose levels.
[2025-09-04] MEDS: GLUCOTROL 5 MG PO (10:42)
[2025-09-04] MEDS: STERILE WATER FOR INJECTION 10 ML IV (10:42)
[2025-09-04] MEDS: ROCEPHIN 1000 MG IV (10:42)
[2025-09-04] MEDS: DIOVAN 160 MG PO (10:43)
[2025-09-04 11:44] LABS: Glucose - Point of Care 199 mg/dl (70-99)
[2025-09-04 13:03] VITALS: BP 168/89
--- NOTE | 2025-09-04 13:10 | W.DCSUMMARY ---
Discharge Summary
Discharge Data
Date of Admission: 09/01/25
Date of Discharge: 09/04/25
-
Pending Results: No
Hospital Course
64 y/o F with history of NIDDM, RLS on opiates/Pramipexole, HTN, fatty liver (chronically elevated LFTs), Depression/Anxiety presented to ER on 09/01 with hyperglycemia symptoms (polyuria, polydipsia, dehydration) - she recently finished a medrol
dose pack. Her recent outpatient A1c was 6.0 a few weeks ago but is up to 10.9% this hospitalization. She was briefly placed on insulin but desired to be on pills therefore was placed on Glipizide in addition to home Metformin as sugar readings
improved. She met with diabetes educators and dieticians. She will need close follow up with PCP and Endocrinology.
She also had RAMIREZ in setting of hyperglycemia and that resolved with IVF. Her BP agent (ARB + HCTZ) was resumed after RAMIREZ resolved.
She was treated for UTI and will complete antibiotics at home.
She was discharge 09/04 to home.
Discharge Plan
-
Patient Disposition: Home (Routine Discharge)
Discharge Diagnosis/Procedures: hyperglycemia, RAMIREZ from dehydration, UTI
Condition: Fair
Diet: Diabetic, Carb Controlled
Activity: As tolerated
Bathing Restrictions: None
Blood Work: repeat A1c with Route Salesman
Referrals:
Tariq Martin MD [Consulting Staff, Endocrinology]
Referral Note: call to make appointment for diabetes follow up
Iggy Gregorio PA-C [Family Provider, Family Practice] - in one week
Additional Discharge Medication Instructions: trial Oxycodone twice daily as needed (you have supply at home from Dr. Maldonado). start Glipizide.
Prescriptions:
New
cefdinir 300 mg capsule
300 mg PO BID Qty: 8 0RF
Rx Instructions:
start 09/05
metformin 500 mg Tablet Extended Release 24 Hr
1,000 mg PO BID@0800,1700 Qty: 60 0RF
glipizide 5 mg Tablet
5 mg PO BID@0800,1700 Qty: 60 0RF
oxycodone 5 mg Tablet
5 mg PO BIDPRN PRN (Reason: moderate pain or restless) Qty: 30 0RF
Continued
valsartan-hydrochlorothiazide 160-12.5 mg tablet
1 tab PO DAILY
doxepin 10 mg capsule
10 mg PO HS
sertraline 50 mg tablet
50 mg PO DAILY
pramipexole 2.25 mg tablet extended release 24 hr
2.25 mg PO HS
Discontinued
oxycodone 5 mg tablet
15 mg PO BID
metformin 500 MG tablet
1,000 mg PO BID
Discharge Orders:
Discharge Patient (As Directed); Ordered 09/04/25
Ordered By: Vy Trejo
Discharge Date and Time
Print Language: MACEDONIAN
--- NOTE | 2025-09-04 16:06 | CM ---
MD entered order for discharge .
Spoke with patient she said she was ready for discharge today .
Don will drive her home.
Offered PCP list [facility] Resident number.
Offered V she declined need.
PLAN Home no needs
== END 2025-09-04 15:58 | disposition home or self-care (01) | DRG 682 ==
LOC: 4 EAST ACU 21:20
PROVIDERS: Emergency Medicine; Physician Assistant Medical; Registered Nurse; ADMITTING PHYSICIAN Internal Medicine; ATTENDING PHYSICIAN Internal Medicine; EMERGENCY PHYSICIAN Student in an Organized Health Care Education/Training Program; FAMILY PHYSICIAN Physician Assistant Medical
DX: N17.9 Acute kidney failure, unspecified (principal); G92.8 Other toxic encephalopathy; N39.0 Urinary tract infection, site not specified; E87.1 Hypo-osmolality and hyponatremia; E11.65 Type 2 diabetes mellitus with hyperglycemia; Z79.4 Long term (current) use of insulin; E86.0 Dehydration; I10 Essential (primary) hypertension; F41.9 Anxiety disorder, unspecified; F32.A Depression, unspecified; G25.81 Restless legs syndrome
CPT/HCPCS: 80053; 81003; 81015; 82010; 82570; 82805; 82962; 83036; 83880; 84156; 85025; 85027; 87086; 96360; 97162; 99284